=== PATIENT | male | born 1940 | race Caucasian/White ===

== ENCOUNTER 2016-11-07 10:53 | Inpatient (IN) | payer MEDICARE, OTHER ==
[~2016-11-07] VITALS: Ht 167.6 cm; Wt 43.5 kg
[2016-11-07] MEDS ORDERED: DUONEB INH ONE (11:13)
[2016-11-07] MEDS ORDERED: DEXTROSE 50% 50 ML ONE ×2 (11:44→14:19)
[2016-11-07] MEDS ORDERED: ONDANSETRON 4 MG VIAL ONE (12:04)
[2016-11-07] MEDS ORDERED: SODIUM CHLORIDE 0.9% 500 ML IV ONE (12:05)
[2016-11-07] MEDS ORDERED: KETOROLAC 30 MG/ML VIAL ONE (12:31)
[2016-11-07] MEDS ORDERED: METHYLPRED SOD SUCC 125 MG/2 ML VIAL ONE (12:53)
[2016-11-07] MEDS ORDERED: NEB-ALBUTEROL 2.5 MG/3 ML INH ONE (13:53)
[2016-11-07] MEDS ORDERED: humuLIN REG INSULIN ONE (14:18)
[2016-11-07] MEDS ORDERED: CALCIUM CHLORIDE 100 MG/ML SYR ONE (14:19)
[2016-11-07] MEDS ORDERED: KAYEXOLATE 15 GM/60 ML BTL PO ONE (14:30)
[2016-11-07] MEDS: METHYLPRED SOD SUCC 40 MG VIAL IV SCH (16:00)
[2016-11-07] MEDS: DUONEB INH SCH ×2 (19:40→22:38)
[2016-11-07 19:44] VITALS: RESP 18
[2016-11-07 19:51] VITALS: BMI 15.5
[2016-11-07 20:00] VITALS: BP_SYST 126; RESP 18; TEMP 98.5
[2016-11-07] MEDS: SODIUM CHLORIDE 0.9% 1,000 ML IV SCH (21:20)
[2016-11-07 23:51] VITALS: BP_SYST 112; RESP 18; TEMP 97.4
[2016-11-08] VITALS (7 sets, daily range): BP systolic 100–136; RESP 16–20; TEMP 97.3–98.5
[2016-11-08] MEDS: METHYLPRED SOD SUCC 40 MG VIAL IV SCH ×4 (00:32→23:37)
[2016-11-08] MEDS: DUONEB INH SCH ×6 (02:17→23:58)
[2016-11-08] MEDS: SODIUM CHLORIDE 0.9% 1,000 ML IV SCH (05:34)
[2016-11-08] MEDS: Furosemide 20 MG/2 ML VIAL IV SCH ×3 (11:35→23:38)
[2016-11-08] MEDS: FAMOTIDINE 20 MG TAB PO SCH ×2 (11:36→21:50)
[2016-11-08] MEDS: ENOXAPARIN 30 MG/0.3 ML SYR SUBQ SCH (11:36)
[2016-11-09] VITALS (7 sets, daily range): BP systolic 96–147; RESP 18–20; TEMP 97.6–98.1; Ht 167.6 cm; Wt 43.5 kg
[2016-11-09] MEDS: DUONEB INH SCH ×6 (03:04→22:45)
[2016-11-09] MEDS: Furosemide 20 MG/2 ML VIAL IV SCH ×3 (05:40→17:30)
[2016-11-09] MEDS: SODIUM CHLORIDE 0.9% 1,000 ML IV SCH ×3 (06:45→17:30)
[2016-11-09] MEDS: METHYLPRED SOD SUCC 40 MG VIAL IV SCH ×2 (07:53→17:30)
[2016-11-09] MEDS: FAMOTIDINE 20 MG TAB PO SCH ×2 (07:54→20:12)
[2016-11-09] MEDS: ENOXAPARIN 30 MG/0.3 ML SYR SUBQ SCH (07:54)
[2016-11-09] MEDS ORDERED: KCL CR 10 MEQ TAB PO ONE (21:35)
[2016-11-10] VITALS (10 sets, daily range): BP systolic 106–146; RESP 17–20; TEMP 96–98.5
[2016-11-10] MEDS: METHYLPRED SOD SUCC 40 MG VIAL IV SCH ×3 (00:13→16:17)
[2016-11-10] MEDS: DUONEB INH SCH ×6 (02:53→23:12)
[2016-11-10] MEDS ORDERED: KCL CR 10 MEQ TAB PO ONE (08:15)
[2016-11-10] MEDS ORDERED: KCL CR 10 MEQ CAP PO ONE (08:50)
[2016-11-10] MEDS: ASPIRIN 81 MG CHEW TAB PO SCH (09:22)
[2016-11-10] MEDS: FAMOTIDINE 20 MG TAB PO SCH ×2 (09:23→21:20)
[2016-11-10] MEDS: ENOXAPARIN 30 MG/0.3 ML SYR SUBQ SCH (09:23)
[2016-11-11] MEDS: METHYLPRED SOD SUCC 40 MG VIAL IV SCH ×3 (01:15→16:00)
[2016-11-11 02:53] VITALS: BP_SYST 143; RESP 17; TEMP 98.1
[2016-11-11] MEDS: DUONEB INH SCH ×5 (03:11→19:00)
[2016-11-11 07:28] VITALS: BP_SYST 164; RESP 20; TEMP 97.6
[2016-11-11 07:29] VITALS: RESP 20; TEMP 97.6
[2016-11-11] MEDS: FAMOTIDINE 20 MG TAB PO SCH (09:20)
[2016-11-11] MEDS: ASPIRIN 81 MG CHEW TAB PO SCH (09:20)
[2016-11-11] MEDS: ENOXAPARIN 30 MG/0.3 ML SYR SUBQ SCH (09:21)
[2016-11-11 11:19] VITALS: BP_SYST 157; RESP 20; TEMP 97.4
[2016-11-11 13:21] VITALS: BP_SYST 157; RESP 20; TEMP 97.4
== END 2016-11-11 20:25 | disposition home or self-care (01) | DRG 683 ==
LOC: ENRESERVTM → ENRESERVDT → ER 10:53 → ENPENDDIS 14:29 → EMR 14:29 → PCU2 19:21
PROVIDERS: ADMIT Internal Medicine; ATTEND Internal Medicine
DX: N17.9 Acute kidney failure, unspecified (principal); J44.1 Chronic obstructive pulmonary disease with (acute) exacerbation; E87.5 Hyperkalemia; E86.0 Dehydration; I10 Essential (primary) hypertension; Z87.891 Personal history of nicotine dependence; K21.9 Gastro-esophageal reflux disease without esophagitis; Z79.82 Long term (current) use of aspirin; K52.9 Noninfective gastroenteritis and colitis, unspecified
CPT/HCPCS: 36415; 36600; 71010; 76770; 80048; 80053; 81003; 82436; 82553; 82803; 83880; 84132; 84300; 84484; 85025; 87804; 93005; 94640; 94799; 96374; 96375